=== PATIENT | male | born 1985 | race Caucasian/White ===

== ENCOUNTER 2017-11-16 21:07 | Inpatient (IN) | payer OTHER ==
[~2017-11-16] VITALS: Ht 190.5 cm; Wt 87.7 kg
[~2017-11-16 21:07] MED LIST: ASPI81TA28 PO; CLON0.3T PO; LPT20 PO; METO25TA56 PO; PRAMCRE2 TOP; SERT-234 PO
[2017-11-16] MEDS: NITROGLYCERIN 2% OINTMENT 30GM TUBE EXT ONE (21:18)
[2017-11-16] MEDS ORDERED: ONDANSETRON INJ 2 MG/ML 2 ML VIAL IV STA (21:19)
[2017-11-16] MEDS ORDERED: METO50TA16 PO (21:29)
[2017-11-16] MEDS ORDERED: CARB25TA12 PO (21:29)
[2017-11-16] MEDS ORDERED: PRAZ2CAP2 PO (21:29)
[2017-11-16] MEDS ORDERED: OXCA300T PO (21:29)
[2017-11-16] MEDS ORDERED: ASPCH81X PO (21:29)
[2017-11-16] MEDS ORDERED: LEVA45AE INH (21:29)
[2017-11-16] MEDS ORDERED: CICL80AE INH (21:29)
[2017-11-16] MEDS ORDERED: SERT1TAB71 PO (21:29)
--- NOTE | 2017-11-16 21:35 | EMERGENCY ROOM VISIT NOTE ---
History Report prepared by Darcy: Yoseph Alfredo Under the Supervision of: Dr. Cristian Sosa M.D. First contact with patient: 21:08 Chief Complaint: CHEST PAIN Stated Complaint: CHEST PAIN / SCI SOLANGE History of Present Illness The patient is a 32 year old male who presents to the Emergency Room brought in by EMS with complaints of persistent chest pain since 1.5 hours ago. The patient resides at [facility]. The patient states that he was sitting at [employer] when he developed chest pain. He reports leaving [employer] early to go back to the block when he vomited. He notes that he developed shortness of breath and became sweaty with the onset of the chest pain. He also notes the pain radiated to his left shoulder and reports left arm numbness. He reports baseline numbness in his legs and bottom of his feet. He becomes short of breath with exertion. He has a history of FL and atrial fibrillation. He notes the last time he had significant pain like this was in 2016 when he had AFIB. He currently rates his pain a 4/10 in severity. 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 He has a history of coronary artery stenting x3. EMS administered two nitroglycerin sprays and four baby Aspirin. He notes that he was given 1 NTG while at the halfway. Source of History: patient Onset: 1.5 hours ago Position: chest Symptom Intensity: 4/10 Timing: other (persistent) Associated Symptoms: + SOB, + vomiting, + numbness (left arm) Note: Notes sweating. Review of Systems See HPI for pertinent positives & negatives. A total of 10 systems reviewed and were otherwise negative. Past Medical & Surgical Medical Problems: (1) Angina pectoris, unstable (2) Atrial fibrillation (3) CAD (coronary artery disease) (4) Cough (5) Hemoptysis (6) Hemoptysis (7) High cholesterol (8) HTN (hypertension) (9) Myocardial infarct Surgical Problems: (1) H/O heart artery stent Family History Blood clots Social History Smoking Status: Former Smoker Alcohol Use: none Drug Use: none Marital Status: single Housing Status: other ([facility].) Current/Historical Medications Scheduled Aspirin (Aspirin Chewable), 81 MG PO QAM Atorvastatin (Lipitor), 20 MG PO HS Carbidopa/Levodopa (Sinemet 25MG/100MG), 1 TAB PO TID Ciclesonide (Alvesco), 2 PUFFS INH BID Metoprolol Tartrate (Lopressor) (Lopressor), 50 MG PO BID Oxcarbazepine (Trileptal), 900 MG PO HS Prazosin Hcl (Prazosin), 2 MG PO HS Sertraline Hcl (Zoloft), 50 MG PO HS Scheduled PRN Levalbuterol Tartrate (Levalbuterol Tartrate Hfa), 2 PUFFS INH TID PRN for Shortness of Breath Allergies Coded Allergies: Latex1 -Allergic Contact Dermititis (Verified Allergy, Intermediate, SKIN IRRITATION, 11/16/17) Physical Exam Vital Signs Date Time Temp Pulse Resp B/P (MAP) Pulse Ox O2 Delivery O2 Flow Rate FiO2 11/16/17 22:30 58 18 138/91 99 Room Air 11/16/17 22:00 76 18 133/85 98 Room Air 11/16/17 21:21 72 11/16/17 21:18 96 Room Air 11/16/17 21:18 37.5 66 18 148/88 96 Room Air 11/16/17 21:18 99 Room Air Physical Exam GENERAL: Patient is in no acute distress. HEENT: No acute trauma, normocephalic atraumatic, mucous membranes moist, no nasal congestion, no scleral icterus. NECK: No stridor, no adenopathy, no meningismus, trachea is midline. LUNGS: Clear to auscultation bilaterally, no wheeze, no rhonchi, breath sounds equal. CHEST: Nontender chest wall. HEART: Without murmurs gallops or rubs, regular rate and rhythm. ABDOMEN: Soft, nontender, bowel sounds positive, no hernias, no peritonitis. EXTREMITIES: No cyanosis or edema, full range of motion of all the joints without pain or difficulty, no signs for acute trauma. NEUROLOGIC: Oriented x 3, no acute motor or sensory deficits, no focal weakness. SKIN: No rash, no jaundice, no diaphoresis. Medical Decision & Procedures ER Provider Diagnostic Interpretation: Radiology results as stated below per my review and radiologist interpretation: SINGLE VIEW CHEST CLINICAL HISTORY: Atypical chest pain. FINDINGS: 2 AP, portable, upright chest radiographs are compared to study dated 09/23/2015. The cardiomediastinal silhouette is unremarkable. The lungs and pleural spaces are clear. No pneumothorax is seen. The bony thorax is grossly intact. IMPRESSION: No active disease in the chest. Electronically signed by: Cristian Solomon M.D. 11/16/2017 9:34 PM Dictated Date/Time: 11/16/2017 9:34 PM Laboratory Results 11/16/17 21:41 11/16/17 21:41 Test 11/16/17 21:41 11/16/17 23:12 11/16/17 23:14 Red Blood Count 4.61 M/uL (4.7-6.1) Mean Corpuscular Volume 89.6 fL (80-100) Mean Corpuscular Hemoglobin 31.7 pg (25-34) Mean Corpuscular Hemoglobin Concent 35.4 g/dl (32-36) RDW Standard Deviation 38.7 fL (36.4-46.3) RDW Coefficient of Variation 11.9 % (11.5-14.5) Mean Platelet Volume 9.5 fL (7.4-10.4) Prothrombin Time 11.4 SECONDS (9.0-12.0) Prothromb Time International Ratio 1.1 (0.9-1.1) Activated Partial Thromboplast Time 25.5 SECONDS (21.0-31.0) Partial Thromboplastin Ratio 1.0 D-Dimer < 190 ug/L FEU (0-500) Anion Gap 6.0 mmol/L (3-11) Est Creatinine Clear Calc Drug Dose 150.1 ml/min Estimated GFR () 134.9 Estimated GFR (Non- 116.4 BUN/Creatinine Ratio 15.3 (10-20) Calcium Level 8.1 mg/dl (8.5-10.1) Total Bilirubin 0.5 mg/dl (0.2-1) Aspartate Amino Transf (AST/SGOT) 17 U/L (15-37) Alanine Aminotransferase (ALT/SGPT) 24 U/L (12-78) Alkaline Phosphatase 54 U/L (45-117) Troponin I < 0.015 ng/ml (0-0.045) Total Protein 6.7 gm/dl (6.4-8.2) Albumin 3.9 gm/dl (3.4-5.0) Globulin 2.8 gm/dl (2.5-4.0) Albumin/Globulin Ratio 1.4 (0.9-2) Lipase 200 U/L (73-393) Laboratory results reviewed by me. Medications Administered Medications (Trade) Dose Ordered Sig/Joe Route Start Time Stop Time Status Last Admin Dose Admin Nitroglycerin (Nitroglycerin 2% Oint) 18 inch STK-MED ONCE EXT 11/16/17 21:18 11/16/17 21:19 DC 11/16/17 21:18 1 INCH Ondansetron HCl (Zofran Inj) 4 mg NOW STAT IV 11/16/17 21:19 11/16/17 21:23 DC 11/16/17 21:32 4 MG Acetaminophen (Tylenol Tab) 1,000 mg NOW STAT PO 11/16/17 23:03 11/16/17 23:04 DC 11/16/17 23:08 1,000 MG ECG Per My Interpretation Indication: chest pain Rate (beats per minute): 70 Rhythm: normal sinus Findings: no ectopy (No PVC), other (No ST elevation. Baseline artifact. ) ED Course 2107: The patient was evaluated in room A9B. A complete history and physical exam was performed. 2117: Ordered Nitroglycerin 1 inch EXT 2118: Ordered Zofran 4 mg IV 2254: I spoke with Dr. Chávez, [facility] hospitalist. We discussed the patient' s case. The patient will be evaluated by the [facility] for further management. 2301: I reassessed the patient at this time. He is feeling better, though he reports a headache. I discussed the results and treatment plan with the patient. I answered all pertaining questions that he had. He expressed understanding and verbalized agreement. The patient will be further evaluated. 3: Ordered Tylenol 1,000 mg PO Medical Decision The patient is a 32 year old male who presents to the ED with complaints of chest pain. Differential diagnoses considered include FL, angina, musculoskeletal, PNA, PNX, aortic dissection, PE, and dysrhythmia . There is no leukocytosis or concerning anemia. No significant electrolyte abnormality, kidney failure or hepatitis. No evidence for pancreatitis. There is no coagulopathy. EKG shows a normal sinus rhythm, no acute ischemia. Cardiac enzyme testing 1 is not consistent with acute cardiac injury. Chest x- ray does not show pneumonia, pneumothorax or mediastinal widening. D-dimer testing is negative. With a negative d-dimer and my low suspicion for PE, I will stop the workup for this diagnosis. The patient presents with left-sided chest pain, nausea/vomiting, sweating and shortness of breath. He has noticed more shortness of breath over the last month or so. He carries a history of FL and has already had 3 coronary stents. The patient had received aspirin prior to arrival, no additional aspirin was given. He was given IV Zofran, he received nitroglycerin paste. He received oral Tylenol. The patient is resting comfortably. He does believe the nitroglycerin has helped. Given his presentation and past history, I do think a hospital stay for further cardiac workup is warranted. I spoke to the patient and case management. I talked with the on-call hospitalist-we discussed the case. Medication Reconcilliation Current Medication List: was personally reviewed by me Blood Pressure Screening Patient's blood pressure: Elevated blood pressure referred to hospitalist Consults Time Called: [id number] Consulting Physician: Dr. Chávez [facility] [place] Returned Call: [phone] Chávez [facility] Hospitalist. We discussed the patient's case. The patient will be evaluated by the [facility] for further management. Impression Primary Impression: Precordial chest pain Scribe Attestation The scribe's documentation has been prepared under my direction and personally reviewed by me in its entirety. I confirm that the note above accurately reflects all work, treatment, procedures, and medical decision making performed by me. Departure Information Dispostion Being Evaluated By Hospitalist Referrals Solange PIERCE (PCP) Patient Instructions My [facility]
[2017-11-16 22:07] LABS: HEMATOCRIT 41.3 % (42-52); HEMOGLOBIN 14.6 g/dL (14.0-18.0); MEAN CELL VOLUME 89.6 fL (80-100); MEAN CORPUSCULAR HEMOGLOBIN 31.7 pg (25-34); MEAN CORPUSCULAR HGB CONC 35.4 g/dl (32-36); MEAN PLATELET VOLUME 9.5 fL (7.4-10.4); PLATELET COUNT 196 K/uL (130-400); RED CELL DISTRIBUTION WIDTH CV 11.9 % (11.5-14.5); RED CELL DISTRIBUTION WIDTH SD 38.7 fL (36.4-46.3); WHITE BLOOD COUNT 4.77 K/uL (4.8-10.8)
[2017-11-16 22:21] LABS: BLOOD UREA NITROGEN 13 mg/dl (7-18); CREATININE 0.86 mg/dl (0.60-1.40); GLUCOSE 92 mg/dl (70-99)
[2017-11-16 22:22] LABS: ALBUMIN 3.9 gm/dl (3.4-5.0); ALT/SGPT 24 U/L (12-78); CALCIUM 8.1 mg/dl (8.5-10.1); CARBON DIOXIDE 26 mmol/L (21-32); LIPASE 200 U/L (73-393); POTASSIUM 3.7 mmol/L (3.5-5.1); SODIUM 142 mmol/L (136-145)
[2017-11-16 22:26] LABS: ALKALINE PHOSPHATASE 54 U/L (45-117); AST/SGOT 17 U/L (15-37); TOTAL PROTEIN 6.7 gm/dl (6.4-8.2)
[2017-11-16 22:35] LABS: INR 1.1 (0.9-1.1); PTT PATIENT 25.5 SECONDS (21.0-31.0)
[2017-11-16] MEDS ORDERED: ACETAMINOPHEN 500 MG TAB PO STA (23:03)
[2017-11-16] MEDS ORDERED: CALCIUM GLUCONATE 10% 1,000 MG in SODIUM CHLORIDE 0.9% 50ML 50 ML IV STA (23:12)
[2017-11-17] VITALS (10 sets, daily range): BP systolic 116–142; BP diastolic 59–87; PULSE 50–60; TEMP 36.4–36.9; O2SAT 96–100; Ht 190.5 cm; Wt 87.7 kg
[2017-11-17] MEDS ORDERED: PROCHLORPERAZINE INJ 5 MG in SYRINGE 4 ML IV PRN
[2017-11-17] MEDS ORDERED: MoRPHine SULFATE 4 MG/ML 1 ML CARP\\VIAL IV PRN
[2017-11-17] MEDS ORDERED: ACETAMINOPHEN 325 MG TAB PO PRN
[2017-11-17] MEDS ORDERED: LACTATED RINGER'S 1000ML 1,000 ML IV ONE
[2017-11-17] MEDS ORDERED: NITROGLYCERIN 0.4 MG SL PER TAB CHARGE SL PRN
[2017-11-17] MEDS ORDERED: LEValbuterol HFA 15GM INHALER INH PRN
[2017-11-17] MEDS ORDERED: LORAZEPAM 2 MG/ML 1 ML VIAL IV PRN
[2017-11-17] MEDS ORDERED: TRAMADOL HCL 50 MG TAB PO PRN
--- NOTE | 2017-11-17 00:28 | DIAGNOSTIC IMAGING REPORT ---
CT SCAN OF THE BRAIN WITHOUT IV CONTRAST CLINICAL HISTORY: Lower extremity numbness. COMPARISON STUDY: CT of the brain dated 09/23/2015. TECHNIQUE: Unenhanced axial CT scan of the brain is performed from the vertex to the skull base. A dose lowering technique was utilized adhering to the principles of ALARA. CT DOSE: 614.27 mGy.cm FINDINGS: Brain parenchyma: The brain parenchyma is normal in appearance. There is no hemorrhage, mass effect, or evidence of acute territorial ischemia by CT criteria. Martines-white matter is preserved. No extra-axial fluid collection is seen. Ventricles, sulci, cisterns: Normal in configuration. Intracranial vasculature: The visualized intracranial vasculature at the skull base is normal in appearance. Calvarium: Unremarkable. Sinuses and mastoids: The visualized paranasal sinuses are clear. The mastoid air cells are well pneumatized. Orbits: The bony orbits are grossly intact. IMPRESSION: No acute intracranial abnormality. Electronically signed by: Cristian Solomon M.D. 11/17/2017 12:26 AM Dictated Date/Time: 11/17/2017 12:25 AM
--- NOTE | 2017-11-17 00:54 | HISTORY & PHYSICAL EXAMINATION ---
DATE OF ADMISSION: 11/16/2017 PCP : STAN Guevara CHIEF COMPLAINT: Chest pain. HISTORY OF PRESENT ILLNESS: History obtained from the patient and records. Medical history is significant for CAD, hypertension, hyperlipidemia, paroxysmal AFib as per records, mood and anxiety disorder, asthma, past tobacco abuse. Recent confinement in October 2015 for chest pain. ACS ruled out w/ normal stress test. After his discharge in the hospital, the patient would have intermittent achy left-sided chest pain going to his L shoulder, usually with exertion, relieved by rest. Shelter EKGs would be normal. As per per patient, he has not seen a meter setter in the last 2 years. Intermittent numbness of both legs, bilateral achy leg pain, especially on walking. Patient was at [employer] today when he experienced achy left-sided chest discomfort going to the left arm, followed by sweatiness, dizziness and emesis. Never this bad as per patient. No abdominal pain. Patient's chest pain relieved by nitro. MEDICAL HISTORY: As above. SURGERIES: He has had anal surgery for condyloma. HOME MEDICATIONS: Include Trileptal, Cardizem, Zoloft, aspirin, Lipitor, Alvesco, Sinemet, levalbuterol, Lopressor. FAMILY HISTORY: Heart disease. PERSONAL AND SOCIAL HISTORY: Past tobacco abuse as per records. No EtOH abuse. current long-term inmate. REVIEW OF SYSTEMS: As per HPI, all 10 systems reviewed, all other ROS negative. PHYSICAL EXAMINATION: VITAL SIGNS: Blood pressure was noted to be 148/80, later 130/80, pulse rate is 58, RR 18, RR 18, temperature 37.5, sats 99 on room air. GENERAL: Noted to be comfortable, no respiratory distress. Looks older than stated age. SKIN: Normal color, warm. HEENT: [place] palpebral conjunctivae. No ptosis. Dry mucosa. NECK: Supple, nontender. CHEST: Clear to auscultation. No tenderness. HEART: Bradycardic. No murmur. Palpable pedal pulses. ABDOMEN: Soft, nontender. EXTREMITIES: No edema. Slight tenderness to light palpation. No other gross deformities. NEUROLOGIC: Coherent. No gross focality. LABORATORY STUDIES: Hemoglobin was noted to be 14.6, hematocrit 41.3, white cell count 4, platelets noted to be 196. Sodium noted to be 140, potassium 4, chloride 110, CO2 26, BUN 39.8, glucose was noted to be 92. Troponin negative. D-dimer was normal. Chest x-ray, no active disease. EKG, as per my interpretation, rate 70 NSR, normal axis, no ischemia. ASSESSMENT: 1. Unstable angina coronary artery disease as per records, no history of intervention. Intermittent symptoms over the last 2 years worst episode today as per patient 2. Hypertension, stable. 3. Hyperlipidemia on statin therapy. 4. PAF as per records, patient currently NSR. 5. Asthma, stable. 6. Lower extremity pain on walking ro perivascular vascular disease. 7. Mood disorder, stable on regimen 8. past tobacco abuse as per records. PLAN: PCU. Continue aspirin, beta swathi, statin meds. Follow cardiac markers Patient may need IV heparin if w/ subsequent troponin elevation. 2D echo, Cardio consult RE chest pain. (Patient known to Dr. Fountain.) Lower extremity arterial Dopplers RE LE pain on walking rule out PVD DVT prophylaxis Lovenox subQ. Full code. MTDD
[2017-11-17] MEDS ORDERED: LORAZEPAM INJ 0.5 MG in SYRINGE 0.75 ML IV PRN (01:15)
[2017-11-17 01:34] LABS: BASO % 0.2 %; BASO ABS # 0.01 K/uL (0-0.2); EOS % 1.1 %; EOS ABS # 0.06 K/uL (0-0.5); HEMATOCRIT 42.7 % (42-52); HEMOGLOBIN 15.1 g/dL (14.0-18.0); IG# 0.01 K/uL (0.00-0.02); LYMPH % 39.6 %; LYMPH ABS # 2.23 K/uL (1.2-3.4); MEAN CELL VOLUME 89.9 fL (80-100); MEAN CORPUSCULAR HEMOGLOBIN 31.8 pg (25-34); MEAN CORPUSCULAR HGB CONC 35.4 g/dl (32-36); MEAN PLATELET VOLUME 9.6 fL (7.4-10.4); MONO % 8.7 %; MONO ABS # 0.49 K/uL (0.11-0.59); NEUT % 50.2 %; NEUT ABS # 2.83 K/uL (1.4-6.5); PLATELET COUNT 202 K/uL (130-400); RED CELL DISTRIBUTION WIDTH CV 11.8 % (11.5-14.5); RED CELL DISTRIBUTION WIDTH SD 38.8 fL (36.4-46.3); WHITE BLOOD COUNT 5.63 K/uL (4.8-10.8)
[2017-11-17 01:49] LABS: PTT PATIENT 25.8 SECONDS (21.0-31.0)
[2017-11-17 01:51] LABS: BLOOD UREA NITROGEN 12 mg/dl (7-18); CALCIUM 8.7 mg/dl (8.5-10.1); CARBON DIOXIDE 23 mmol/L (21-32); CREATININE 0.91 mg/dl (0.60-1.40); GLUCOSE 81 mg/dl (70-99); POTASSIUM 3.7 mmol/L (3.5-5.1); SODIUM 141 mmol/L (136-145)
[2017-11-17 01:56] LABS: CHOLESTEROL 182 mg/dl (0-200); LDL CHOLESTEROL CALCULATED 102 mg/dl
[2017-11-17] MEDS: ENOXAPARIN 30 MG/0.3 ML SYR SC SCH (05:55)
[2017-11-17] MEDS: ASPIRIN 81 MG ECTAB PO SCH (07:55)
[2017-11-17] MEDS: CARBIDOPA/LEVODOPA 25/100MG TAB PO SCH ×3 (07:55→21:11)
--- NOTE | 2017-11-17 08:19 | DIAGNOSTIC IMAGING REPORT ---
ULTRASOUND BILATERAL LOWER EXTREMITY ARTERIAL CLINICAL HISTORY: Leg pain. COMPARISON STUDY: No priors. TECHNIQUE: Real-time, grayscale, and color Doppler sonography of the arteries of the right and left lower extremity is performed from the inguinal crease to the foot. Ankle-brachial indices were not assessed due to ankle shackles. FINDINGS: Right lower extremity: No significant atherosclerotic plaque is identified. Normal triphasic arterial waveforms are identified within the right common femoral artery with velocities measuring up to 133 cm/s. Normal triphasic waveforms are seen throughout the right superficial femoral artery with velocities measuring up to 93 cm/s. The profunda femoris artery is patent with velocities measuring up to 100 cm/s. The popliteal artery is patent with normal arterial waveforms and velocities measuring up to 62 cm/s. The calf arteries are patent with three-vessel runoff to the foot. Velocities within the calf arteries measure up to 71 cm/s. The dorsalis pedis artery is patent with velocities measuring up to 41 cm second. Left lower extremity: No atherosclerotic plaque is identified. Normal triphasic arterial waveforms are seen in the left common femoral artery with velocities measuring up to 123 cm/s. The profunda femoris artery is patent with velocities measuring up to 65 cm/s. There are normal triphasic arterial waveforms seen throughout the superficial femoral artery with velocities measuring up to 99 cm/s. Normal waveforms are seen in the popliteal artery with velocities measuring up to 70 cm/s. There is three-vessel runoff to the foot. Normal arterial waveforms are present within the calf arteries, with velocities measuring up to 78 cm/s. The dorsalis pedal artery is patent with velocities measuring up to 67 cm/s. IMPRESSION: Unremarkable Doppler sonographic assessment of the arteries of the right and left lower extremity. See above. Dictated: 11/17/2017 7:12 AM Transcribed: 11/17/2017 8:19 AM Rodolfo Electronically signed by: Cristian Solomon M.D. 11/17/2017 8:20 AM Dictated Date/Time: 11/17/2017 7:12 AM
[2017-11-17] MEDS ORDERED: METOPROLOL TARTRATE 50 MG TAB PO SCH (09:00)
--- NOTE | 2017-11-17 09:51 | ECHOCARDIOGRAM REPORT ---
*NOTICE TO RECEIVING CONSTITUTION PARTY AGENCY This information is strictly Confidential and protected under [place] law. [place] law prohibits you from making any further disclosure of this information unless further disclosure is expressly permitted by the written consent of the person to whom it pertains or is authorized by law. A general authorization for the release of medical or other information is not sufficient for this purpose. Hospital accepts no responsibility if the information is made available to any other person, INCLUDING THE PATIENT. Interpretation Summary * Name: [facility]MAN [facility] [id number] Study Date: 11/17/2017 06:16 AM BP: 116/56 mmHg * Patient Location: .2T\S\E219\S\1 HR: 58 * : 1985 (M/d/yyyy) Gender: Male Height: 75 in * Age: 32 yrs Ethnicity: CA Weight: 200 lb * Ordering Physician: Trae Chávez * Referring Physician: UNKNOWN * Performed By: Emely Bhatt RCS * * Reason For Study: CHEST PAIN * BSA: 2.2 m2 * -- Conclusions -- * No change compared to previous study of 09/24/15. * Normal LV chamber size and wall thickness. * Normal LV systolic function, EF 60-65%. * No segmental left ventricular wall motion abnormalities are noted. * Normal diastolic function. * No significant valvular pathology. Procedure Details * A complete two-dimensional transthoracic echocardiogram was performed (2D, M-mode, Doppler and color flow Doppler). Left Ventricle * The left ventricle is normal in size. * There is normal left ventricular wall thickness. * Left ventricular systolic function is normal. * No segmental left ventricular wall motion abnormalities are noted. * Ejection Fraction = 60-65%. * The left ventricular wall motion is normal. Right Ventricle * The right ventricular cavity size is normal (basal dimension <4.2 cm in right ventricular apical 4-chamber view). * The right ventricular systolic function is normal as assessed by tricuspid annular plane systolic excursion (TAPSE) (normal >1.5 cm). Atria * The left atrial size is normal. * Right atrial size is normal. * No ASD detected; PFO is not assessed. Mitral Valve * The mitral valve is normal in structure and function. Tricuspid Valve * The tricuspid valve is normal in structure and function. Aortic Valve * The aortic valve is normal in structure and function. Pulmonic Valve * The pulmonary valve is not well seen, but the Doppler examination is normal without significant regurgitation or stenosis. Great Vessels * The aortic root is normal size. Pericardium/Pleural * There is no pericardial effusion. Left Ventricular Diastolic Function * Pulse wave TDI of the anterior and posterior mitral annulas demonstrates normal LV relaxation MMode 2D Measurements and Calculations IVSd 1.2 cm IVSs 1.4 cm LVIDd 4.6 cm LVIDs 3.2 cm LVPWd 1.0 cm LVPWs 1.4 cm IVS/LVPW 1.1 FS 29.5 % EDV(Teich) 97.6 ml ESV(Teich) 42.4 ml EF(Teich) 56.5 % EDV(cubed) 97.6 ml ESV(cubed) 34.2 ml EF(cubed) 65.0 % % IVS thick 17.6 % % LVPW thick 31.0 % LV mass(C)d 185.6 grams LV mass(C)dI 84.6 grams/m\S\2 LV mass(C)s 153.1 grams LV mass(C)sI 69.8 grams/m\S\2 SV(Teich) 55.2 ml SI(Teich) 25.1 ml/m\S\2 SV(cubed) 63.4 ml SI(cubed) 28.9 ml/m\S\2 Ao root diam 3.4 cm Ao root area 9.0 cm\S\2 LA dimension 3.0 cm LA/Ao 0.88 LVOT diam 2.0 cm LVOT area 3.0 cm\S\2 LVAd ap4 33.6 cm\S\2 LVLd ap4 8.3 cm EDV(MOD-sp4) 112.8 ml EDV(sp4-el) 116.4 ml LVAs ap4 21.8 cm\S\2 LVLs ap4 6.2 cm ESV(MOD-sp4) 60.7 ml ESV(sp4-el) 64.9 ml EF(MOD-sp4) 46.2 % EF(sp4-el) 44.2 % LVAd ap2 44.3 cm\S\2 LVLd ap2 9.3 cm EDV(MOD-sp2) 174.1 ml EDV(sp2-el) 179.6 ml LVAs ap2 27.2 cm\S\2 LVLs ap2 7.8 cm ESV(MOD-sp2) 76.9 ml ESV(sp2-el) 80.3 ml EF(MOD-sp2) 55.8 % EF(sp2-el) 55.3 % LVLd %diff 11.0 % EDV(MOD-bp) 147.1 ml LVLs %diff 21.2 % ESV(MOD-bp) 76.7 ml EF(MOD-bp) 47.8 % SV(MOD-sp4) 52.1 ml SI(MOD-sp4) 23.8 ml/m\S\2 SV(MOD-sp2) 97.2 ml SI(MOD-sp2) 44.3 ml/m\S\2 SV(MOD-bp) 70.3 ml SI(MOD-bp) 32.1 ml/m\S\2 SV(sp4-el) 51.5 ml SI(sp4-el) 23.5 ml/m\S\2 SV(sp2-el) 99.4 ml SI(sp2-el) 45.3 ml/m\S\2 Doppler Measurements and Calculations MV E max roby 71.7 cm/sec MV A max roby 41.0 cm/sec MV E/A 1.8 MV P1/2t max roby 95.8 cm/sec MV P1/2t 56.1 msec MVA(P1/2t) 3.9 cm\S\2 MV dec slope 500.0 cm/sec\S\2 MV dec time 0.23 sec Ao V2 max 119.8 cm/sec Ao max PG 5.7 mmHg Ao max PG (full) 2.6 mmHg LILI(V,A) 2.2 cm\S\2 LILI(V,D) 2.2 cm\S\2 LV V1 max PG 3.1 mmHg LV V1 max 88.0 cm/sec MR max royb 451.4 cm/sec MR max PG 81.5 mmHg PA V2 max 85.4 cm/sec PA max PG 2.9 mmHg TR max roby 211.8 cm/sec
--- NOTE | 2017-11-17 09:56 | Progress Note ---
Subjective Date of Service: Nov 17, 2017. Subjective Pt evaluation today including: conversation w/ patient, physical exam, lab review, review of studies, review of inpatient medication list Saw/examined the patient in room 219 He is in the room with two [facility] guards, LLE cuffed to the bed. Does not appear in any distress. States he had chest pain last evening on the L side, non-reproducible, radiating to his L shoulder. Came to the ED for further evaluation; states he has intermittent palpitations as well. Currently, pain improved Problem List Medical Problems: (1) Precordial chest pain Status: Acute (2) Unstable angina Status: Acute Review of Systems Constitutional: No fever, No chills Respiratory: + shortness of breath, + dyspnea on exertion, No cough, No sputum , No wheezing Cardiac: + chest pain, + palpitations, No edema Abdomen: + nausea, No pain, No vomiting, No diarrhea, No constipation Male : No dysuria, No urinary frequency Neurologic: + numbness/tingling, No memory loss, No weakness, No vertigo, No balance problems Medications Current Inpatient Medications Medications (Trade) Dose Ordered Sig/Joe Route Start Time Stop Time Status Last Admin Dose Admin Lactated Ringer's 1,000 ml @ 75 mls/hr [id number] ONCE IV 11/17/17 00:00 11/17/17 13:19 11/17/17 01:59 75 MLS/HR Enoxaparin Sodium (Lovenox Inj) 30 mg Q24H SC 11/17/17 06:00 12/17/17 05:59 11/17/17 05:55 30 MG Acetaminophen (Tylenol Tab) 650 mg Q4H PRN PO 11/17/17 00:00 12/17/17 00:00 Nitroglycerin (Nitrostat Tab) 0.4 mg UD PRN SL 11/17/17 00:00 12/17/17 00:00 Tramadol HCl (Ultram Tab) 25 mg Q6H PRN PO 11/17/17 00:00 12/17/17 00:00 Prochlorperazine Edisylate 5 mg/ Syringe 5 ml @ 5 mls/min Q6H PRN IV 11/17/17 00:00 12/17/17 00:00 Lorazepam (Ativan Inj) 0.5 mg Q4H PRN IV 11/17/17 00:00 12/17/17 00:00 Morphine Sulfate (MoRPHine SULFATE INJ) 4 mg Q6H PRN IV 11/17/17 00:00 12/01/17 00:00 Aspirin (Ecotrin Tab) 81 mg QAM PO 11/17/17 09:00 12/17/17 08:59 11/17/17 07:55 81 MG Atorvastatin Calcium (Lipitor Tab) 20 mg HS PO 11/17/17 21:00 12/17/17 20:59 Carbidopa/Levodopa (Sinemet 25/ 100MG Tab) 1 tab TID PO 11/17/17 09:00 12/17/17 08:59 11/17/17 07:55 1 TAB Levalbuterol (Xopenex Hfa Inhaler) 2 puffs TID PRN INH 11/17/17 00:00 12/17/17 00:00 Metoprolol Tartrate (Lopressor Tab) 50 mg BID PO 11/17/17 09:00 12/17/17 08:59 11/17/17 07:56 50 MG Oxcarbazepine (Trileptal Tab) 900 mg HS PO 11/17/17 21:00 12/17/17 20:59 Sertraline HCl (Zoloft Tab) 50 mg HS PO 11/17/17 21:00 12/17/17 20:59 Miscellaneous Information (Order Awaiting Action) 1 ea QS N/A 11/17/17 08:00 12/17/17 07:59 Prazosin HCl (Prazosin) 2 mg HS PO 11/17/17 21:00 12/17/17 20:59 Lorazepam 0.5 mg/ Syringe 1 ml @ 1 mls/min Q4H PRN IV 11/17/17 01:15 12/17/17 01:14 Objective Vital Signs Date Time Temp Pulse Resp B/P (MAP) Pulse Ox O2 Delivery O2 Flow Rate FiO2 11/17/17 04:00 Room Air 11/17/17 03:38 36.4 59 18 116/59 (78) 96 Room Air 11/17/17 01:05 36.6 56 18 142/83 (102) 96 Room Air 11/17/17 01:05 36.6 56 18 142/83 Room Air 11/17/17 00:07 58 18 134/81 98 3/31/18 22:30 58 18 138/91 99 Room Air 11/16/17 22:00 76 18 133/85 98 Room Air 11/16/17 21:21 72 11/16/17 21:18 96 Room Air 11/16/17 21:18 37.5 66 18 148/88 96 Room Air 11/16/17 21:18 99 Room Air Physical Exam General Appearance: no apparent distress Respiratory/Chest: chest non-tender, lungs clear, normal breath sounds, no respiratory distress, no accessory muscle use Cardiovascular: regular rate, rhythm, no edema, no murmur Extremities: normal range of motion, non-tender, normal inspection, no pedal edema, no calf tenderness Neurologic/Psychiatric: no motor/sensory deficits, alert, normal mood/affect Laboratory Results Last 24 Hours Test 11/16/17 21:41 11/17/17 01:18 11/17/17 01:22 White Blood Count 4.77 K/uL 5.63 K/uL Red Blood Count 4.61 M/uL 4.75 M/uL Hemoglobin 14.6 g/dL 15.1 g/dL Hematocrit 41.3 % 42.7 % Mean Corpuscular Volume 89.6 fL 89.9 fL Mean Corpuscular Hemoglobin 31.7 pg 31.8 pg Mean Corpuscular Hemoglobin Concent 35.4 g/dl 35.4 g/dl RDW Standard Deviation 38.7 fL 38.8 fL RDW Coefficient of Variation 11.9 % 11.8 % Platelet Count 196 K/uL 202 K/uL Mean Platelet Volume 9.5 fL 9.6 fL Prothrombin Time 11.4 SECONDS Prothromb Time International Ratio 1.1 Activated Partial Thromboplast Time 25.5 SECONDS 25.8 SECONDS Partial Thromboplastin Ratio 1.0 1.0 D-Dimer < 190 ug/L FEU Sodium Level 142 mmol/L 141 mmol/L Potassium Level 3.7 mmol/L 3.7 mmol/L Chloride Level 110 mmol/L 109 mmol/L Carbon Dioxide Level 26 mmol/L 23 mmol/L Anion Gap 6.0 mmol/L 9.0 mmol/L Blood Urea Nitrogen 13 mg/dl 12 mg/dl Creatinine 0.86 mg/dl 0.91 mg/dl Est Creatinine Clear Calc Drug Dose 150.1 ml/min 141.9 ml/min Estimated GFR () 134.9 130.6 Estimated GFR (Non- 116.4 112.7 BUN/Creatinine Ratio 15.3 13.3 Random Glucose 92 mg/dl 81 mg/dl Calcium Level 8.1 mg/dl 8.7 mg/dl Magnesium Level 1.9 mg/dl Total Bilirubin 0.5 mg/dl Aspartate Amino Transf (AST/SGOT) 17 U/L Alanine Aminotransferase (ALT/SGPT) 24 U/L Alkaline Phosphatase 54 U/L Troponin I < 0.015 ng/ml < 0.015 ng/ml Total Protein 6.7 gm/dl Albumin 3.9 gm/dl Globulin 2.8 gm/dl Albumin/Globulin Ratio 1.4 Lipase 200 U/L Thyroid Stimulating Hormone (TSH) 1.760 uIu/ml Neutrophils (%) (Auto) 50.2 % Lymphocytes (%) (Auto) 39.6 % Monocytes (%) (Auto) 8.7 % Eosinophils (%) (Auto) 1.1 % Basophils (%) (Auto) 0.2 % Neutrophils # (Auto) 2.83 K/uL Lymphocytes # (Auto) 2.23 K/uL Monocytes # (Auto) 0.49 K/uL Eosinophils # (Auto) 0.06 K/uL Basophils # (Auto) 0.01 K/uL Immature Granulocyte % (Auto) 0.2 % Immature Granulocyte # (Auto) 0.01 K/uL Vitamin B12 Level 395 pg/mL Folate 17.78 ng/mL Triglycerides Level 80 mg/dl Cholesterol Level 182 mg/dl HDL Cholesterol 64 mg/dl LDL Cholesterol, Calculated 102 mg/dl VLDL Cholesterol, Calculated 16 mg/dl Cholesterol/HDL Ratio 2.8 Assessment and Plan This is a 32 year old male with a PMH of CAD, HTN, HLD, hx. of palpitations and possible paroxysmal A. Fib, panic disorder, bipolar disorder, depression/anxiety , asthma, restless leg syndrome - presents with chest pain Chest Pain rule out ACS Hx. of CAD? - previous admission in 2016, at that time he mentioned that he had stents put in, though no evidence discovered at that time - stress test in 2016 was negative - he was continued on aspirin, Lipitor, metoprolol - presents here with chest pain on the L radiating to shoulder - questionable EKG changes - troponin negative x3 - echo pending - cardiology consulted for further input - would benefit from trial of PPI if ACS is ruled out Hx. of Paroxysmal A. Fib - currently in NSR; continue metoprolol Bipolar/Panic Disorder/Mood Disorder - continue current medications Restless Leg Syndrome/Neuropathy - continue Sinemet - consider change to Gabapentin as outpatient DVT ppx - Lovenox FULL CODE
--- NOTE | 2017-11-17 14:31 | CARDIOLOGY CONSULTATION ---
DATE OF CONSULTATION: 11/17/2017 CONSULTATION REQUESTED BY: Dr. Chávez. REASON FOR CONSULTATION: Chest pain. HISTORY OF PRESENT ILLNESS: Mr. Hagan is a 32-year-old male who was admitted to [facility] from [facility] with a complaint of chest pain and nausea. The patient states that he was in his normal state of health yesterday when he developed chest pain. He states that is nothing new for him to develop chest pain. He states it has been constant for several years now. He states that he normally has pain a few times a week. Yesterday's episode of chest pain he described as a sharp, stabbing underneath his left precordium which is his normal pain; however, this episode the pain seemed to be much more severe and was associated with some nausea and vomiting. At that time, he was transferred to the Emergency Department. In the Emergency Department, he was given nitroglycerin. He states he has not had any further discomfort since. Again, the patient states he has been having chest pain for several years. Hospital records indicate that his most recent evaluation by teletypesetter was with Dr. Caruso when he was admitted in September of 2015 and at that time he had a nonischemic stress test. The patient has a difficult cardiac history. He states previously that he received 3 stents for [employer] in 2016 to one of his coronary arteries; however, Dr. Caruso was unable to find that in any of his medical records at his last admission. PAST SURGICAL HISTORY: 1. Questionable cardiac catheterization with stenting done this undisclosed vessel. 2. Anal surgery. MEDICAL ILLNESSES: 1. Questionable coronary artery disease. 2. Chart history of paroxysmal atrial fibrillation, but only documented sinus rhythm and occasional PACs have been documented during hospitalizations. 3. Dyslipidemia. 4. Panic disorder. 5. Anxiety disorder. 6. Asthma. FAMILY HISTORY: Remarkable for father and grandfather both had coronary artery disease. SOCIAL HISTORY: The patient is a former smoker. He is currently incarcerated. REVIEW OF SYSTEMS: As per HPI, all other review of systems reviewed and negative at this time. ALLERGIES: LATEX. MEDICATIONS AN OUTPATIENT: 1. Aspirin 81 mg daily. 2. Atorvastatin 20 mg daily. 3. Metoprolol tartrate 50 mg b.i.d. 4. Sinemet t.i.d. 5. Trileptal at bedtime. 6. Prazosin at bedtime. 7. Zoloft at bedtime. PHYSICAL EXAMINATION: VITALS: Temperature 36.7, pulse 54, respiratory rate 12, blood pressure 137/87. GENERAL: Awake, alert, oriented x3 in no acute distress. HEENT: Normocephalic, atraumatic. Pupils equal, round, reactive to light and accommodation. Extraocular muscles intact. Anicteric sclerae. Moist mucous membranes. NECK: No JVD, no bruit. CARDIOVASCULAR: Regular. No S4. Normal S1 and S2. No S3. No murmurs, rubs or gallops. PULMONARY: Clear to auscultation bilaterally. No rales, rhonchi, or wheezing. ABDOMEN: Bowel sounds x4, soft. No rebound, guarding, tenderness. No organomegaly. EXTREMITIES: No clubbing, cyanosis or edema. +2 pedal pulses bilaterally. SKIN: Warm and dry. TEST RESULTS: Bilateral lower extremity arterial ultrasounds was read as unremarkable Doppler sonographic assessment of the arteries of the right lower extremity. A 12-lead EKG performed in the Emergency Department independently reviewed at this time shows normal sinus rhythm at 70 beats per minute with sinus arrhythmia, normal axis, no signs of active ischemia, normal study. LABORATORY STUDIES OF SIGNIFICANCE: Troponin negative x2. IMPRESSION: 1. Chest pain. 2. Questionable history of coronary artery disease. 3. Lower extremity paresthesias with normal arterial Dopplers. 4. Hypertension. 5. Anxiety disorder. RECOMMENDATIONS: The patient was counseled that also there is ischemic workup to this point has been unremarkable. Given the fact that his troponin was negative, his EKG was essentially normal and his echocardiogram showed normal wall motion. However, given his questionable history of coronary artery disease, we will complete an ischemic evaluation by performing a dobutamine stress echocardiogram given the patient's lower extremity discomfort. This will be planned for the a.m. The patient's metoprolol will be held at this time to help achieve target heart rate and the patient will be made n.p.o. after midnight.
[2017-11-17] MEDS ORDERED: ATORVASTATIN 20 MG TAB PO SCH (21:00)
[2017-11-17] MEDS ORDERED: OXCARBAZEPINE 150 MG TAB PO SCH (21:00)
[2017-11-17] MEDS ORDERED: PRAZOSIN HCL 1 MG CAP PO SCH (21:00)
[2017-11-17] MEDS ORDERED: SERTRALINE HCL 50 MG TAB PO SCH (21:00)
[2017-11-18 03:56] VITALS: BP 114/73; PULSE 56; TEMP 36.4; O2SAT 96
[2017-11-18] MEDS: ENOXAPARIN 30 MG/0.3 ML SYR SC SCH (06:34)
[2017-11-18 07:40] VITALS: BP 114/72; PULSE 51; TEMP 36.5; O2SAT 98
[2017-11-18 08:00] VITALS: O2SAT 98
[2017-11-18] MEDS: CARBIDOPA/LEVODOPA 25/100MG TAB PO SCH ×2 (08:37→14:12)
[2017-11-18] MEDS: ASPIRIN 81 MG ECTAB PO SCH (08:37)
--- NOTE | 2017-11-18 09:03 | Progress Note ---
Subjective Date of Service: Nov 18, 2017. Subjective Pt evaluation today including: conversation w/ patient, physical exam, lab review, review of studies, review of inpatient medication list Saw/examined the patient in room 219 he states his chest pain is improved Does not have palpitations any longer No other issues at this time Problem List Medical Problems: (1) Precordial chest pain Status: Acute (2) Unstable angina Status: Acute Review of Systems Constitutional: No fever, No chills Respiratory: + dyspnea on exertion, No cough, No sputum, No wheezing, No shortness of breath, No dyspnea at rest, No hemoptysis Cardiac: No chest pain, No edema, No palpitations Medications Current Inpatient Medications Medications (Trade) Dose Ordered Sig/Joe Route Start Time Stop Time Status Last Admin Dose Admin Enoxaparin Sodium (Lovenox Inj) 30 mg Q24H SC 11/17/17 06:00 12/17/17 05:59 11/18/17 06:34 30 MG Acetaminophen (Tylenol Tab) 650 mg Q4H PRN PO 11/17/17 00:00 12/17/17 00:00 Nitroglycerin (Nitrostat Tab) 0.4 mg UD PRN SL 11/17/17 00:00 12/17/17 00:00 Tramadol HCl (Ultram Tab) 25 mg Q6H PRN PO 11/17/17 00:00 12/17/17 00:00 Prochlorperazine Edisylate 5 mg/ Syringe 5 ml @ 5 mls/min Q6H PRN IV 11/17/17 00:00 12/17/17 00:00 Lorazepam (Ativan Inj) 0.5 mg Q4H PRN IV 11/17/17 00:00 12/17/17 00:00 Morphine Sulfate (MoRPHine SULFATE INJ) 4 mg Q6H PRN IV 11/17/17 00:00 12/01/17 00:00 Aspirin (Ecotrin Tab) 81 mg QAM PO 11/17/17 09:00 12/17/17 08:59 11/18/17 08:37 81 MG Atorvastatin Calcium (Lipitor Tab) 20 mg HS PO 11/17/17 21:00 12/17/17 20:59 11/17/17 21:11 20 MG Carbidopa/Levodopa (Sinemet 25/ 100MG Tab) 1 tab TID PO 11/17/17 09:00 12/17/17 08:59 11/18/17 08:37 1 TAB Levalbuterol (Xopenex Hfa Inhaler) 2 puffs TID PRN INH 11/17/17 00:00 12/17/17 00:00 Metoprolol Tartrate (Lopressor Tab) 50 mg BID PO 11/17/17 09:00 12/17/17 08:59 Future Hold 11/17/17 07:56 50 MG Oxcarbazepine (Trileptal Tab) 900 mg HS PO 11/17/17 21:00 12/17/17 20:59 Sertraline HCl (Zoloft Tab) 50 mg HS PO 11/17/17 21:00 12/17/17 20:59 Miscellaneous Information (Order Awaiting Action) 1 ea QS N/A 11/17/17 08:00 12/17/17 07:59 Prazosin HCl (Prazosin) 2 mg HS PO 11/17/17 21:00 12/17/17 20:59 11/17/17 21:10 2 MG Lorazepam 0.5 mg/ Syringe 1 ml @ 1 mls/min Q4H PRN IV 11/17/17 01:15 12/17/17 01:14 Objective Vital Signs Date Time Temp Pulse Resp B/P (MAP) Pulse Ox O2 Delivery O2 Flow Rate FiO2 11/18/17 07:40 36.5 51 16 114/72 (86) 98 Room Air 11/18/17 04:00 Room Air 11/18/17 03:56 36.4 56 18 114/73 (87) 96 Room Air 11/17/17 23:59 Room Air 11/17/17 23:06 36.8 60 18 117/70 (86) 97 Room Air 11/17/17 20:00 Room Air 11/17/17 19:15 36.9 50 18 122/74 (90) 97 Room Air 11/17/17 16:00 96 Room Air 11/17/17 15:25 36.8 50 16 128/74 (92) 97 Room Air 11/17/17 12:08 36.6 59 20 131/82 (98) 100 Room Air 11/17/17 12:00 96 Room Air Physical Exam General Appearance: no apparent distress Respiratory/Chest: chest non-tender, lungs clear, normal breath sounds, no respiratory distress, no accessory muscle use Cardiovascular: regular rate, rhythm, no edema, no gallop, no JVD, no murmur Extremities: normal range of motion, non-tender, normal inspection, no pedal edema, no calf tenderness Assessment and Plan This is a 32 year old male with a PMH of CAD, HTN, HLD, hx. of palpitations and possible paroxysmal A. Fib, panic disorder, bipolar disorder, depression/anxiety , asthma, restless leg syndrome - presents with chest pain Chest Pain rule out ACS Hx. of CAD? 11/18 - plan for d/c home if dobutamine stress is negative - continue current medications (hold metoprolol until after stress) 11/17 - previous admission in 2016, at that time he mentioned that he had stents put in, though no evidence discovered at that time - stress test in 2016 was negative - he was continued on aspirin, Lipitor, metoprolol - presents here with chest pain on the L radiating to shoulder - questionable EKG changes - troponin negative x3 - echo pending - cardiology consulted for further input - would benefit from trial of PPI if ACS is ruled out Hx. of Paroxysmal A. Fib - currently in NSR; continue metoprolol Bipolar/Panic Disorder/Mood Disorder - continue current medications Restless Leg Syndrome/Neuropathy - continue Sinemet - consider change to Gabapentin as outpatient DVT ppx - Lovenox FULL CODE
[2017-11-18] MEDS ORDERED: METOPROLOL TARTRATE 1 MG/ML VIAL ONE ×2 (09:47)
[2017-11-18] MEDS ORDERED: ATROPINE SULFATE 0.1 MG/ML 5ML SYR ONE ×2 (09:47)
[2017-11-18] MEDS ORDERED: DOBUTamine HCL 12.5 MG/ML 20 ML VIAL ONE (09:47)
--- NOTE | 2017-11-18 11:31 | Cardiology Follow-Up ---
Subjective Subjective Date of Service: Nov 18, 2017. Pt evaluation today including: conversation w/ patient, physical exam, chart review, lab review, review of studies, review of inpatient medication list Additional Details: Pt seen and examined, states that he feels rather well. States that he had some slight recurrences of chest discomfort throughout the night while at rest. Tele reviewed: sinus rhythm without arrhythmia or significant ectopy. Problem List Medical Problems: (1) Precordial chest pain Status: Acute (2) Unstable angina Status: Acute Review of Systems Constitutional: No fever, No chills Respiratory: No cough, No sputum, No wheezing, No shortness of breath, No dyspnea at rest, No hemoptysis Cardiac: + chest pain, No see HPI, No orthopnea, No PND, No edema, No claudication, No palpitations, No problem reported Abdomen: + nausea, No pain, No vomiting, No diarrhea, No constipation Male : No dysuria, No urinary frequency Neurologic: + numbness/tingling, No memory loss, No weakness, No vertigo, No balance problems Objective Vital Signs Last Vital Signs Documentation Date Time Temp Pulse Resp B/P (MAP) Pulse Ox O2 Delivery O2 Flow Rate FiO2 11/18/17 08:00 98 Room Air 11/18/17 07:40 36.5 51 16 114/72 (86) Physical Exam: General Appearance: WD/WN, no apparent distress Eyes: bilateral eyes normal inspection, bilateral eyes PERRL, bilateral eyes EOMI ENT: normal ENT inspection, hearing grossly normal, pharynx normal Neck: supple, no adenopathy, thyroid normal, no JVD, no carotid bruits, trachea midline Respiratory/Chest: chest non-tender, lungs clear, normal breath sounds, no respiratory distress, no accessory muscle use Cardiovascular: regular rate, rhythm, no edema, no gallop, no JVD, no murmur Abdomen: normal bowel sounds, non tender, soft, no organomegaly, no pulsatile mass Extremities: non-tender, normal inspection, no pedal edema, no calf tenderness Neurologic/Psychiatric: general operator II-XII nml as tested, no motor/sensory deficits, alert, normal mood/affect, + abnormal cerebellar tests Skin: normal color, warm/dry, no rash Lymphatic: no adenopathy Assessment and Plan 1. chest pain nonischemic dobutamine stress echocardiogram chest pain is nonischemic in origin ok to d/c from cardiac standpoint no cardiac f/u necessary at this time would recommend attempting to ultimately obtain patient's complete medical records for completeness sake. 2. ?PAF only sinus on monitor
[2017-11-18 11:33] VITALS: BP 113/71; PULSE 77; TEMP 36.6; O2SAT 98
--- NOTE | 2017-11-18 11:51 | DOBUTAMINE ECHO ---
*NOTICE TO RECEIVING CONSTITUTION PARTY AGENCY This information is strictly Confidential and protected under [place] law. [place] law prohibits you from making any further disclosure of this information unless further disclosure is expressly permitted by the written consent of the person to whom it pertains or is authorized by law. A general authorization for the release of medical or other information is not sufficient for this purpose. Hospital accepts no responsibility if the information is made available to any other person, INCLUDING THE PATIENT. Interpretation Summary * Name: GUZMAN PLAZA [id number] Study Date: 11/18/2017 08:58 AM BP: 148/71 mmHg * Patient Location: 2\S\E219\S\1 HR: 72 * : 1985 (M/d/yyyy) Gender: Male Height: 74 in * Age: 32 yrs Ethnicity: CA Weight: 194 lb * Ordering Physician: Mariusz Boyle DO * Performed By: Melanie Madrid RDCS * * Reason For Study: Chest Pain * BSA: 2.1 m2 * -- Conclusions -- * Nonischemic dobutamine stress echocardiogram. * No arrhythmias. * Normal HR and BP response to dobutamine infusion. Procedure Details * DOBUTAMINE ECHO, CPT#59503 Left Ventricle * Resting wall motion: Normal. Stress wall motion: Appropriate increase in Left ventricular systolic function and decrease in cavity size. No stress induced segmental wall motion abnormalities. Stress Parameters * Normal baseline electrocardiogram. * No arrhythmia were noted with stress. * The stress ECG response was normal * The stress portion of this study was personally supervised by the undersigned interpreting physician. * Rest heart rate was '72' BPM. * Rest blood pressure was '148/71' * Maximum heart rate achieved was 169 bpm. * Maximum heart rate was 88 % of maximum age-predicted heart rate. * Maximum blood pressure was '188/111' * Total exercise time was '12:00' * Maximum Dobutamine infusion rate was '50' mcg/kg/min. * A total of 1 mg of intravenous Atropine was used to supplement Dobutamine for heart rate response. * Dobutamine infusion was terminated due to achieving target heart rate * A total of 10 mg of IV Metoprolol was administered to reverse Dobutamine-induced tachycardia. * The patient exhibited chest pain during the drug infusion. * Normal blood pressure response to exercise. * Target heart rate achieved.
[2017-11-18 12:00] VITALS: O2SAT 98
[2017-11-18] MEDS ORDERED: OMEP20TA14 PO (12:36)
--- NOTE | 2017-11-18 12:37 | Discharge Instructions ---
Discharge Instructions Date of Service Nov 18, 2017. Admission Reason for Admission: Angina Pectoris, Unstable Discharge Discharge Diagnosis / Problem: Chest pain, possible reflux, neuropathy Discharge Goals Goal(s): Decrease discomfort, Improve function, Diagnostic testing, Therapeutic intervention Activity Recommendations Activity Limitations: resume your previous activity . Instructions / Follow-Up Instructions / Follow-Up Possible reflux; trial of Prilosec May need gabapentin for neuropathy Current Hospital Diet Patient's current hospital diet: AHA Diet (Heart Healthy) Discharge Diet Recommended Diet: AHA Diet (Heart Healthy) Pending Studies Studies pending at discharge: no Laboratory Results Lipid Panel Test 11/17/17 01:22 Range/Units Triglycerides Level 80 0-150 mg/dl Cholesterol Level 182 0-200 mg/dl HDL Cholesterol 64 mg/dl Cholesterol/HDL Ratio 2.8 LDL Cholesterol, Calculated 102 mg/dl Medical Emergencies . Who to Call and When: Medical Emergencies: If at any time you feel your situation is an emergency, please call 911 immediately. . Non-Emergent Contact Non-Emergency issues call your: Primary Care Provider . . "Provider Documentation" section prepared by Juan Miguel Ortega. .
--- NOTE | 2017-11-18 12:39 | Discharge Summary ---
Discharge Summary Date of Service Nov 18, 2017. Discharge Summary Admission Date: Nov 16, 2017 at 23:19 Discharge Date: Nov 18, 2017 Discharge Disposition: Home (correctional facility) Principal Diagnosis: Chest Pain, likely Reflux Neuropathy ? CAD ? PAF Medication Reconciliation New Medications: Omeprazole Magnesium (Prilosec Otc) 20 Mg Tab 1 TAB PO DAILY for 30 Days, #30 TAB 3 Refills Continued Medications: Aspirin (Aspirin Chewable) 81 Mg Chew 81 MG PO QAM, TAB Atorvastatin (Lipitor) 20 Mg Tab 20 MG PO HS Carbidopa/Levodopa (Sinemet 25MG/100MG) Tab 1 TAB PO TID, TAB Ciclesonide (Alvesco) 80 Mcg/Act Aer 2 PUFFS INH BID Levalbuterol Tartrate (Levalbuterol Tartrate Hfa) 45 Mcg/Act Aer 2 PUFFS INH TID PRN for Shortness of Breath Metoprolol Tartrate (Lopressor) (Lopressor) 50 Mg Tab 50 MG PO BID, TAB Oxcarbazepine (Trileptal) 300 Mg Tab 900 MG PO HS, TAB Prazosin Hcl (Prazosin) 2 Mg Cap 2 MG PO HS, CAP Sertraline Hcl (Zoloft) 50 Mg Tab 50 MG PO HS, TAB Admission Information HPI (per Admitting provider): DATE OF ADMISSION: 11/16/2017 PCP : STAN Guevara CHIEF COMPLAINT: Chest pain. HISTORY OF PRESENT ILLNESS: History obtained from the patient and records. Medical history is significant for CAD, hypertension, hyperlipidemia, paroxysmal AFib as per records, mood and anxiety disorder, asthma, past tobacco abuse. Recent confinement in October 2015 for chest pain. ACS ruled out w/ normal stress test. After his discharge in the hospital, the patient would have intermittent achy left-sided chest pain going to his L shoulder, usually with exertion, relieved by rest. [facility] EKGs would be normal. As per per patient, he has not seen a setter automatic spinning lathe in the last 2 years. Intermittent numbness of both legs, bilateral achy leg pain, especially on walking. Patient was at [employer] today when he experienced achy left-sided chest discomfort going to the left arm, followed by sweatiness, dizziness and emesis. Never this bad as per patient. No abdominal pain. Patient's chest pain relieved by nitro. MEDICAL HISTORY: As above. SURGERIES: He has had anal surgery for condyloma. HOME MEDICATIONS: Include Trileptal, Cardizem, Zoloft, aspirin, Lipitor, Alvesco, Sinemet, levalbuterol, Lopressor. FAMILY HISTORY: Heart disease. PERSONAL AND SOCIAL HISTORY: Past tobacco abuse as per records. No EtOH abuse. current half-way inmate. REVIEW OF SYSTEMS: As per HPI, all 10 systems reviewed, all other ROS negative. PHYSICAL EXAMINATION: VITAL SIGNS: Blood pressure was noted to be 148/80, later 130/80, pulse rate is 58, RR 18, RR 18, temperature 37.5, sats 99 on room air. GENERAL: Noted to be comfortable, no respiratory distress. Looks older than stated age. SKIN: Normal color, warm. HEENT: [place] palpebral conjunctivae. No ptosis. Dry mucosa. NECK: Supple, nontender. CHEST: Clear to auscultation. No tenderness. HEART: Bradycardic. No murmur. Palpable pedal pulses. ABDOMEN: Soft, nontender. EXTREMITIES: No edema. Slight tenderness to light palpation. No other gross deformities. NEUROLOGIC: Coherent. No gross focality. LABORATORY STUDIES: Hemoglobin was noted to be 14.6, hematocrit 41.3, white cell count 4, platelets noted to be 196. Sodium noted to be 140, potassium 4, chloride 110, CO2 26, BUN 39.8, glucose was noted to be 92. Troponin negative. D-dimer was normal. Chest x-ray, no active disease. EKG, as per my interpretation, rate 70 NSR, normal axis, no ischemia. ASSESSMENT: 1. Unstable angina coronary artery disease as per records, no history of intervention. Intermittent symptoms over the last 2 years worst episode today as per patient 2. Hypertension, stable. 3. Hyperlipidemia on statin therapy. 4. PAF as per records, patient currently NSR. 5. Asthma, stable. 6. Lower extremity pain on walking ro perivascular vascular disease. 7. Mood disorder, stable on regimen 8. past tobacco abuse as per records. PLAN: PCU. Continue aspirin, beta swathi, statin meds. Follow cardiac markers Patient may need IV heparin if w/ subsequent troponin elevation. 2D echo, Cardio consult RE chest pain. (Patient known to Dr. Fountain.) Lower extremity arterial Dopplers RE LE pain on walking rule out PVD DVT prophylaxis Lovenox subQ. Hospital Course This is a 32 year old male with a PMH of CAD, HTN, HLD, hx. of palpitations and possible paroxysmal A. Fib, panic disorder, bipolar disorder, depression/anxiety , asthma, restless leg syndrome - presents with chest pain Chest Pain rule out ACS Hx. of CAD? 11/18 - plan for d/c to correctional facility - stress test is negative - continue current medications (hold metoprolol until after stress) 11/17 - previous admission in 2015, at that time he mentioned that he had stents put in, though no evidence discovered at that time - stress test in 2016 was negative - he was continued on aspirin, Lipitor, metoprolol - presents here with chest pain on the L radiating to shoulder - questionable EKG changes - troponin negative x3 - echo pending - cardiology consulted for further input - would benefit from trial of PPI if ACS is ruled out Hx. of Paroxysmal A. Fib - currently in NSR; continue metoprolol Bipolar/Panic Disorder/Mood Disorder - continue current medications Restless Leg Syndrome/Neuropathy - continue Sinemet - consider change to Gabapentin as outpatient DVT ppx - Lovenox FULL CODE Total time spent on discharge = 25 minutes This includes examination of the patient, discharge planning, medication reconciliation, and communication with other providers. Discharge Instructions Possible reflux; trial of Prilosec May need gabapentin for neuropathy
[2017-11-18 13:14] VITALS: BP 113/71; PULSE 77; TEMP 36.6; O2SAT 98
== END 2017-11-18 15:31 | disposition home or self-care (01) | DRG 313 ==
LOC: EDBD 21:07 → C.EDA 21:08 → C.2T 23:19 → EDBEDREQ 23:36 → ENRESERV 23:41
PROVIDERS: ADMIT Internal Medicine; ATTEND Family Medicine
DX: R07.9 Chest pain, unspecified (principal); I48.0 Paroxysmal atrial fibrillation; I25.10 Atherosclerotic heart disease of native coronary artery without angina pectoris; I10 Essential (primary) hypertension; E78.5 Hyperlipidemia, unspecified; F41.0 Panic disorder [episodic paroxysmal anxiety]; G25.81 Restless legs syndrome; J45.909 Unspecified asthma, uncomplicated; Z79.82 Long term (current) use of aspirin; Z79.899 Other long term (current) drug therapy; Z87.891 Personal history of nicotine dependence; Z91.040 Latex allergy status